=== PATIENT | male | born 1985 | race African-American/Black ===

== ENCOUNTER 2018-08-26 21:40 | Inpatient (IN) | payer BC ==
[~2018-08-26] VITALS: Ht 177.8 cm; Wt 90.3 kg
--- OUTSIDE RECORDS SUMMARY | 2018-08-26 21:43 | XMS REPORT ---
Author Author [facility] Address Unknown Phone Unavailable Care Team Providers Care Sleever Name Role Phone JAGDISH AMADOR Unavailable Unavailable Problems This patient has no known problems. Allergies, Adverse Reactions, Alerts This patient has no known allergies or adverse reactions. Medications This patient has no known medications. Results Test Description Test Time Test Comments Text Results Atomic Results Result Comments CREATINE KINASE (CK) 2018-08-26 13:48:00 CREATINE KINASE TOTAL (BEAKER) (test fzzx=898) > U/L 29-200 CREATINE KINASE (CK)2018-08-26 12:57:00* Test Item Value Reference Range Comments CREATINE KINASE TOTAL (BEAKER) (test xhfy=146) > U/L 29-200 BASIC METABOLIC [id number] 06:17:00* Test Item Value Reference Range Comments SODIUM (BEAKER) (test hthw=730) 136 meq/L 136-145 POTASSIUM (BEAKER) (test motz=648) 5.4 meq/L 3.5-5.1 CHLORIDE (BEAKER) (test pquv=753) 103 meq/L 98-107 CO2 (BEAKER) (test obbj=837) 27 meq/L 22-29 BLOOD UREA NITROGEN (BEAKER) (test jqwx=011) 13 mg/dL 7-21 CREATININE (BEAKER) (test dgmd=753) 0.84 mg/dL 0.57-1.25 GLUCOSE RANDOM (BEAKER) (test ugzh=900) 80 mg/dL 70-105 CALCIUM (BEAKER) (test wjuf=454) 9.4 mg/dL 8.4-10.2 EGFR (BEAKER) (test hzpq=6873) 128 mL/min/1.73 sq m ESTIMATED GFR IS NOT ACCURATE CREATININE CLEARANCE IN PREDICTING GLOMERULAR FILTRATION RATE. ESTIMATED GFR IS NOT APPLICABLE FOR DIALYSIS PATIENTS. CBC W/PLT COUNT & AUTO [id number] 05:49:00* Test Item Value Reference Range Comments WHITE BLOOD CELL COUNT (BEAKER) (test uelk=421) 7.3 K/ L 3.5-10.5 RED BLOOD CELL COUNT (BEAKER) (test wkqv=444) 5.32 M/ L 4.63-6.08 HEMOGLOBIN (BEAKER) (test hjjc=122) 15.7 GM/DL 13.7-17.5 HEMATOCRIT (BEAKER) (test ceqb=541) 46.5 % 40.1-51.0 MEAN CORPUSCULAR VOLUME (BEAKER) (test izdj=928) 87.4 fL 79.0-92.2 MEAN CORPUSCULAR HEMOGLOBIN (BEAKER) (test gkau=991) 29.5 pg 25.7-32.2 MEAN CORPUSCULAR HEMOGLOBIN CONC (BEAKER) (test okte=862) 33.8 GM/DL 32.3-36.5 RED CELL DISTRIBUTION WIDTH (BEAKER) (test ageg=392) 12.6 % 11.6-14.4 PLATELET COUNT (BEAKER) (test ssaj=900) 228 K/CU MM 150-450 MEAN PLATELET VOLUME (BEAKER) (test zifw=300) 10.6 fL 9.4-12.4 NUCLEATED RED BLOOD CELLS (BEAKER) (test tqjo=085) 0 /100 WBC 0-0 NEUTROPHILS RELATIVE PERCENT (BEAKER) (test suxc=410) 68 % LYMPHOCYTES RELATIVE PERCENT (BEAKER) (test cuum=393) 19 % MONOCYTES RELATIVE PERCENT (BEAKER) (test zrwa=277) 11 % EOSINOPHILS RELATIVE PERCENT (BEAKER) (test nlio=318) 1 % BASOPHILS RELATIVE PERCENT (BEAKER) (test dyvl=727) 0 % NEUTROPHILS ABSOLUTE COUNT (BEAKER) (test vyik=259) 4.96 K/ L 1.78-5.38 LYMPHOCYTES ABSOLUTE COUNT (BEAKER) (test iawx=251) 1.39 K/ L 1.32-3.57 MONOCYTES ABSOLUTE COUNT (BEAKER) (test dejo=371) 0.76 K/ L 0.30-0.82 EOSINOPHILS ABSOLUTE COUNT (BEAKER) (test urjv=596) 0.09 K/ L 0.04-0.54 BASOPHILS ABSOLUTE COUNT (BEAKER) (test vqck=402) 0.02 K/ L 0.01-0.08 IMMATURE GRANULOCYTES-RELATIVE PERCENT (BEAKER) (test aedv=3771) 1 % 0-1 CREATINE KINASE (CK)2018-08-25 17:00:00* Test Item Value Reference Range Comments CREATINE KINASE TOTAL (BEAKER) (test rrkm=225) U/L 29-200 DR=[id number] U/L BASIC METABOLIC [id number] 06:34:00* Test Item Value Reference Range Comments SODIUM (BEAKER) (test dsuf=184) 137 meq/L 136-145 POTASSIUM (BEAKER) (test tchc=009) 4.8 meq/L 3.5-5.1 CHLORIDE (BEAKER) (test yuea=425) 106 meq/L 98-107 CO2 (BEAKER) (test ocqg=322) 26 meq/L 22-29 BLOOD UREA NITROGEN (BEAKER) (test katd=989) 9 mg/dL 7-21 CREATININE (BEAKER) (test qtwx=104) 0.79 mg/dL 0.57-1.25 GLUCOSE RANDOM (BEAKER) (test qgxb=008) 84 mg/dL 70-105 CALCIUM (BEAKER) (test zmmm=425) 9.0 mg/dL 8.4-10.2 EGFR (BEAKER) (test uiwy=2161) 138 mL/min/1.73 sq m ESTIMATED GFR IS NOT ACCURATE CREATININE CLEARANCE IN PREDICTING GLOMERULAR FILTRATION RATE. ESTIMATED GFR IS NOT APPLICABLE FOR DIALYSIS PATIENTS. CBC W/PLT COUNT & AUTO [id number] 05:42:00* Test Item Value Reference Range Comments WHITE BLOOD CELL COUNT (BEAKER) (test hgjo=976) 7.3 K/ L 3.5-10.5 RED BLOOD CELL COUNT (BEAKER) (test vdgi=744) 4.94 M/ L 4.63-6.08 HEMOGLOBIN (BEAKER) (test wgmu=138) 14.6 GM/DL 13.7-17.5 HEMATOCRIT (BEAKER) (test dmlv=622) 43.4 % 40.1-51.0 MEAN CORPUSCULAR VOLUME (BEAKER) (test yvxa=476) 87.9 fL 79.0-92.2 MEAN CORPUSCULAR HEMOGLOBIN (BEAKER) (test frnt=221) 29.6 pg 25.7-32.2 MEAN CORPUSCULAR HEMOGLOBIN CONC (BEAKER) (test gtxv=607) 33.6 GM/DL 32.3-36.5 RED CELL DISTRIBUTION WIDTH (BEAKER) (test wqli=509) 12.6 % 11.6-14.4 PLATELET COUNT (BEAKER) (test mvfu=092) 189 K/CU MM 150-450 MEAN PLATELET VOLUME (BEAKER) (test cawr=800) 10.8 fL 9.4-12.4 NUCLEATED RED BLOOD CELLS (BEAKER) (test vlnp=142) 0 /100 WBC 0-0 NEUTROPHILS RELATIVE PERCENT (BEAKER) (test lziz=190) 69 % LYMPHOCYTES RELATIVE PERCENT (BEAKER) (test wfoq=315) 19 % MONOCYTES RELATIVE PERCENT (BEAKER) (test jbgc=734) 11 % EOSINOPHILS RELATIVE PERCENT (BEAKER) (test ezad=066) 1 % BASOPHILS RELATIVE PERCENT (BEAKER) (test isti=603) 0 % NEUTROPHILS ABSOLUTE COUNT (BEAKER) (test zwat=635) 5.01 K/ L 1.78-5.38 LYMPHOCYTES ABSOLUTE COUNT (BEAKER) (test ramx=418) 1.34 K/ L 1.32-3.57 MONOCYTES ABSOLUTE COUNT (BEAKER) (test tvlg=385) 0.80 K/ L 0.30-0.82 EOSINOPHILS ABSOLUTE COUNT (BEAKER) (test xaiv=625) 0.05 K/ L 0.04-0.54 BASOPHILS ABSOLUTE COUNT (BEAKER) (test mcwp=316) 0.02 K/ L 0.01-0.08 IMMATURE GRANULOCYTES-RELATIVE PERCENT (BEAKER) (test zzcy=1371) 0 % 0-1 CREATINE KINASE (CK)2018-08-24 08:21:00* Test Item Value Reference Range Comments CREATINE KINASE TOTAL (BEAKER) (test mhbo=640) > U/L 29-200 BASIC METABOLIC [id number] 05:41:00* Test Item Value Reference Range Comments SODIUM (BEAKER) (test jhlc=534) 141 meq/L 136-145 POTASSIUM (BEAKER) (test cbmj=792) 3.9 meq/L 3.5-5.1 CHLORIDE (BEAKER) (test wonx=264) 109 meq/L 98-107 CO2 (BEAKER) (test tsca=417) 26 meq/L 22-29 BLOOD UREA NITROGEN (BEAKER) (test uszd=495) 11 mg/dL 7-21 CREATININE (BEAKER) (test kafs=819) 0.84 mg/dL 0.57-1.25 GLUCOSE RANDOM (BEAKER) (test qnkr=451) 82 mg/dL 70-105 CALCIUM (BEAKER) (test olbw=519) 8.4 mg/dL 8.4-10.2 EGFR (BEAKER) (test gvyg=7630) 128 mL/min/1.73 sq m ESTIMATED GFR IS NOT ACCURATE CREATININE CLEARANCE IN PREDICTING GLOMERULAR FILTRATION RATE. ESTIMATED GFR IS NOT APPLICABLE FOR DIALYSIS PATIENTS. CBC W/PLT COUNT & AUTO [id number] 05:05:00* Test Item Value Reference Range Comments WHITE BLOOD CELL COUNT (BEAKER) (test stac=193) 6.1 K/ L 3.5-10.5 RED BLOOD CELL COUNT (BEAKER) (test uffo=841) 4.75 M/ L 4.63-6.08 HEMOGLOBIN (BEAKER) (test kfxx=427) 14.0 GM/DL 13.7-17.5 HEMATOCRIT (BEAKER) (test agyy=258) 41.0 % 40.1-51.0 MEAN CORPUSCULAR VOLUME (BEAKER) (test llnh=654) 86.3 fL 79.0-92.2 MEAN CORPUSCULAR HEMOGLOBIN (BEAKER) (test zyee=238) 29.5 pg 25.7-32.2 MEAN CORPUSCULAR HEMOGLOBIN CONC (BEAKER) (test jazf=373) 34.1 GM/DL 32.3-36.5 RED CELL DISTRIBUTION WIDTH (BEAKER) (test ffap=682) 12.2 % 11.6-14.4 PLATELET COUNT (BEAKER) (test ysot=685) 175 K/CU MM 150-450 MEAN PLATELET VOLUME (BEAKER) (test fwxl=642) 11.0 fL 9.4-12.4 NUCLEATED RED BLOOD CELLS (BEAKER) (test vgcn=850) 0 /100 WBC 0-0 NEUTROPHILS RELATIVE PERCENT (BEAKER) (test dxso=223) 67 % LYMPHOCYTES RELATIVE PERCENT (BEAKER) (test ficq=916) 20 % MONOCYTES RELATIVE PERCENT (BEAKER) (test bmdj=811) 12 % EOSINOPHILS RELATIVE PERCENT (BEAKER) (test pkcv=530) 1 % BASOPHILS RELATIVE PERCENT (BEAKER) (test tqbl=161) 0 % NEUTROPHILS ABSOLUTE COUNT (BEAKER) (test gvkv=436) 4.09 K/ L 1.78-5.38 LYMPHOCYTES ABSOLUTE COUNT (BEAKER) (test odrn=083) 1.22 K/ L 1.32-3.57 MONOCYTES ABSOLUTE COUNT (BEAKER) (test aamj=019) 0.72 K/ L 0.30-0.82 EOSINOPHILS ABSOLUTE COUNT (BEAKER) (test nkje=004) 0.05 K/ L 0.04-0.54 BASOPHILS ABSOLUTE COUNT (BEAKER) (test bmxr=853) 0.02 K/ L 0.01-0.08 IMMATURE GRANULOCYTES-RELATIVE PERCENT (BEAKER) (test jkgw=2926) 0 % 0-1 RAD, CHEST, 1 VIEW, NON [id number] 17:08:00Reason for exam:->HEMATURIAReason for exam:->SHORTNESS OF BREATHShould this be performed at the bedside?->YesFINAL REPORT Chest, AP view. History: Hematuria. Comparison: 08/20/2012. Discussion: The cardiomediastinal silhouette and pulmonary vas culature are within normal limits. The lungs are clear without evidence of conso lidation or effusion. There are no acute osseous abnormalities. The soft tissue s are unremarkable. IMPRESSION: No acute cardiopulmonary abnormality. Signed: Bryn Elena MDReps[facility] Verified Date/Time: 08/23/2018 17:08:57 Reading Locatio n: [facility] Mammo Reading Room TINE KINASE (CK)2018-08-23 16:46:00* Test Item Value Reference Range Comments CREATINE KINASE TOTAL (BEAKER) (test ayum=958) > U/L 29-200 BASIC METABOLIC [id number] 16:16:00* Test Item Value Reference Range Comments SODIUM (BEAKER) (test vqis=533) 139 meq/L 136-145 POTASSIUM (BEAKER) (test tyfw=951) 3.3 meq/L 3.5-5.1 CHLORIDE (BEAKER) (test iahm=870) 103 meq/L 98-107 CO2 (BEAKER) (test mmmt=818) 27 meq/L 22-29 BLOOD UREA NITROGEN (BEAKER) (test qurr=322) 12 mg/dL 7-21 CREATININE (BEAKER) (test bmbj=007) 0.91 mg/dL 0.57-1.25 GLUCOSE RANDOM (BEAKER) (test wbkg=512) 80 mg/dL 70-105 CALCIUM (BEAKER) (test cqor=167) 9.1 mg/dL 8.4-10.2 EGFR (BEAKER) (test fgma=0342) mL/min/1.73 sq m INSUFFICIENT CLINICAL DATA TO CALCULATE ESTIMATED GFR. URINALYSIS W/ REFLEX URINE [id number] 16:07:00* Test Item Value Reference Range Comments COLOR (BEAKER) (test dfwv=037) Yellow CLARITY (BEAKER) (test diyc=547) Clear SPECIFIC GRAVITY UA (BEAKER) (test wcgl=000) 1.003 1.001-1.035 PH UA (BEAKER) (test fayt=452) 6.5 5.0-8.0 PROTEIN UA (BEAKER) (test oaka=061) 70 mg/dL Negative GLUCOSE UA (BEAKER) (test coqq=411) Negative Negative KETONES UA (BEAKER) (test gbgk=527) Negative Negative BILIRUBIN UA (BEAKER) (test nyht=072) Negative Negative BLOOD UA (BEAKER) (test pksz=723) Large Negative NITRITE UA (BEAKER) (test tbwc=546) Negative Negative LEUKOCYTE ESTERASE UA (BEAKER) (test nxvu=183) Negative Negative UROBILINOGEN UA (BEAKER) (test bnds=142) 0.2 mg/dL 0.2-1.0 RBC UA (BEAKER) (test tcwb=242) 0 /HPF WBC UA (BEAKER) (test zyaj=824) 1 /HPF SOURCE(BEAKER) (test cnjr=6813) CBC W/PLT COUNT & AUTO [id number] 15:58:00* Test Item Value Reference Range Comments WHITE BLOOD CELL COUNT (BEAKER) (test zhrm=698) 6.9 K/ L 3.5-10.5 RED BLOOD CELL COUNT (BEAKER) (test zzcp=111) 5.27 M/ L 4.63-6.08 HEMOGLOBIN (BEAKER) (test wscc=880) 15.4 GM/DL 13.7-17.5 HEMATOCRIT (BEAKER) (test ixdn=022) 45.2 % 40.1-51.0 MEAN CORPUSCULAR VOLUME (BEAKER) (test yodj=382) 85.8 fL 79.0-92.2 MEAN CORPUSCULAR HEMOGLOBIN (BEAKER) (test pbqy=575) 29.2 pg 25.7-32.2 MEAN CORPUSCULAR HEMOGLOBIN CONC (BEAKER) (test hmhy=297) 34.1 GM/DL 32.3-36.5 RED CELL DISTRIBUTION WIDTH (BEAKER) (test gcdl=298) 11.9 % 11.6-14.4 PLATELET COUNT (BEAKER) (test lnhz=904) 173 K/CU MM 150-450 MEAN PLATELET VOLUME (BEAKER) (test nvlk=654) 10.9 fL 9.4-12.4 NUCLEATED RED BLOOD CELLS (BEAKER) (test geyl=416) 0 /100 WBC 0-0 NEUTROPHILS RELATIVE PERCENT (BEAKER) (test exkh=420) 74 % LYMPHOCYTES RELATIVE PERCENT (BEAKER) (test nboo=370) 17 % MONOCYTES RELATIVE PERCENT (BEAKER) (test cnlj=234) 8 % EOSINOPHILS RELATIVE PERCENT (BEAKER) (test njzf=226) 1 % BASOPHILS RELATIVE PERCENT (BEAKER) (test sdso=738) 0 % NEUTROPHILS ABSOLUTE COUNT (BEAKER) (test nkku=930) 5.12 K/ L 1.78-5.38 LYMPHOCYTES ABSOLUTE COUNT (BEAKER) (test ezjq=164) 1.17 K/ L 1.32-3.57 MONOCYTES ABSOLUTE COUNT (BEAKER) (test cefr=904) 0.54 K/ L 0.30-0.82 EOSINOPHILS ABSOLUTE COUNT (BEAKER) (test xicw=687) 0.05 K/ L 0.04-0.54 BASOPHILS ABSOLUTE COUNT (BEAKER) (test bmhb=273) 0.02 K/ L 0.01-0.08 IMMATURE GRANULOCYTES-RELATIVE PERCENT (BEAKER) (test bwcb=0087) 0 % 0-1
--- OUTSIDE RECORDS SUMMARY | 2018-08-26 21:43 | XMS REPORT | Clinical Summary ---
Author Author [facility] Address Unknown Phone Unavailable Care Team Providers Care Lather Apprentice Name Role Phone PCP Unavailable Allergies Comments Active Allergy Reactions Severity Noted Date Hydrocodone-Acetaminophen 08/23/2018 Medications End Date Status Medication Sig Dispensed Refills Start Date Active sodium chloride 0.9%, NS, Inject 5 mLs 5 mL 0 injection intravenously 9 every 8 (eight) hours. Active sodium chloride 0.9%, NS, Inject 5 mLs 5 mL 0 injection intravenously 9 as needed. Active heparin injection 5,000 Inject 1 mL 1 mL 0 units/mL for DVT (5,000 Units 9 prophylaxis/dialysis total) lock/IV bolus subcutaneousl y every 12 (twelve) hours. 08/21/2019 Active acetaminophen (TYLENOL) Take 2 30 tablet 0 325 MG tablet tablets (650 9 mg total) by mouth every 4 (four) hours as needed for up to 360 days. 09/02/2018 Active ondansetron (ZOFRAN-ODT) Take 1 tablet 20 tablet 0 4 MG disintegrating (4 mg total) 9 tablet by mouth every 8 (eight) hours as needed for up to 7 days. 08/26/2019 Active senna (SENOKOT) 8.6 mg Take 1 tablet 30 tablet 0 tablet (8.6 mg 9 total) by mouth every night as needed for Constipation. 09/05/2018 Active bisacodyl (DULCOLAX) 10 Place 1 12 0 mg suppository suppository suppository 9 (10 mg total) rectally daily as needed for up to 10 days. 09/05/2018 Active docusate sodium (COLACE) Take 1 10 capsule 0 100 MG capsule capsule (100 9 mg total) by mouth 2 (two) times daily for 10 days. 08/29/2018 Active polyethylene glycol Take 17 g by 14 each 0 (GLYCOLAX) 17 gram packet mouth daily 9 as needed (Constipation ) for up to 3 days. 09/25/2018 Active temazepam (RESTORIL) 7.5 Take 1 30 capsule 0 MG capsule capsule (7.5 9 mg total) by mouth every night as needed for up to 30 days. Max Daily Amount: 7.5 mg 09/05/2018 Active aluminum & magnesium Take 30 mLs 355 mL 0 hydroxide-simethicone by mouth 9 (MAALOX PLUS) 400-400-40 every 6 (six) mg/5 mL suspension hours as needed for up to 10 days. Active Problems Problem Noted Date Rhabdomyolysis 08/24/2018 Rhabdomyolysis 08/24/2018 Myoglobinuria 08/24/2018 Acute renal failure with acute cortical necrosis 08/24/2018 SOB (shortness of breath) 08/23/2018 Encounters Care Team Description Date Type Specialty 08/24/2018 Travel Nick Jack MD Ahmed, Shamoon, MD SOB (shortness of breath) (Primary Dx); Non-traumatic rhabdomyolysis; Hematuria, gross; Febrile illness 08/23/2018 Hospital Oncology - Encounter 08/26/2018 08/23/2018 Orders Only General Internal Medicine 08/23/2018 Travel after 08/25/2017 Social History Date Tobacco Use Types Packs/Day Years Used Never Smoker Smokeless Tobacco: Never Used Alcohol Use Drinks/Week oz/Week Comments No Alcohol Habits Answer Date Recorded How often do you have a drink containing alcohol? Never 08/23/2018 How many drinks containing alcohol do you have on Not asked a typical day when you are drinking? How often do you have six or more drinks on one Not asked occasion? Sex Assigned at Date Recorded Not on file Industry Job Start Date Occupation Not on file Not on file Not on file Travel End Travel History Travel Start No recent travel history available. Last Filed Vital Signs Time Taken Vital Sign Reading 08/26/2018 3:00 PM CDT Blood Pressure 136/76 08/26/2018 3:00 PM CDT Pulse 111 08/26/2018 3:00 PM CDT Temperature 36.1 C (97 F) 08/26/2018 3:00 PM CDT Respiratory Rate 18 08/26/2018 3:00 PM CDT Oxygen Saturation 96% - Inhaled Oxygen - Concentration 08/23/2018 11:10 PM CDT Weight 93.4 kg (206 lb) 08/23/2018 11:10 PM CDT Height 177.8 cm (5' 10") 08/23/2018 11:10 PM CDT Body Mass Index 29.56 Plan of Treatment Not on file Procedures Comments Procedure Name Priority Date/Time Associated Diagnosis CREATINE KINASE (CK) Routine 08/26/2018 11:56 AM CDT CBC W/PLT COUNT & AUTO Routine 08/26/2018 DIFFERENTIAL 5:18 AM CDT CREATINE KINASE (CK) Routine 08/26/2018 5:18 AM CDT CBC W/PLT COUNT & AUTO Routine 08/26/2018 DIFFERENTIAL 5:18 AM CDT BASIC METABOLIC PANEL (7) Routine 08/26/2018 5:18 AM CDT CREATINE KINASE (CK) STAT 08/25/2018 3:03 PM CDT CBC W/PLT COUNT & AUTO Routine 08/25/2018 DIFFERENTIAL 5:25 AM CDT CBC W/PLT COUNT & AUTO Routine 08/25/2018 DIFFERENTIAL 5:25 AM CDT BASIC METABOLIC PANEL (7) Routine 08/25/2018 5:25 AM CDT CBC W/PLT COUNT & AUTO Routine 08/24/2018 DIFFERENTIAL 4:34 AM CDT CREATINE KINASE (CK) Routine 08/24/2018 4:34 AM CDT CBC W/PLT COUNT & AUTO Routine 08/24/2018 DIFFERENTIAL 4:34 AM CDT BASIC METABOLIC PANEL (7) Routine 08/24/2018 4:34 AM CDT XR CHEST 1 VIEW STAT 08/23/2018 PORTABLE/BEDSIDE 5:00 PM CDT URINALYSIS W/ REFLEX STAT 08/23/2018 URINE CULTURE 3:43 PM CDT CBC W/PLT COUNT & AUTO STAT 08/23/2018 DIFFERENTIAL 3:39 PM CDT CREATINE KINASE (CK) STAT 08/23/2018 3:39 PM CDT BASIC METABOLIC PANEL (7) STAT 08/23/2018 3:39 PM CDT CBC W/PLT COUNT & AUTO STAT 08/23/2018 DIFFERENTIAL 3:39 PM CDT ECG 12-LEAD Routine 08/23/2018 3:31 PM CDT Procedure Note - Interface, External Ris In - 08/23/2018 6:33 PM CDT Ventricula r Rate 79 BPM Atrial Rate 79 BPM P-R Interval 156 ms QRS Duration 88 ms Q-T Interval 348 ms QTC Calculatio n(Bazett) 399 ms P Nowata 63 degrees R Nowata 23 degrees T Nowata 26 degrees Sinus rhythm with sinus arrhythmia with occasional Premature ventricula r complexes Otherwise normal ECG When compared with ECG of 3 14:16, Premature ventricula r complexes are now Present T wave amplitude has decreased in Anterior leads ECG 12-LEAD STAT 08/23/2018 3:31 PM CDT after 08/25/2017 Results * Creatine Kinase (CK) (08/26/2018 11:56 AM CDT) Only the most recent of 5 results within the time period is included. Total CK >03580 (H) 29 - 200 U/L [facility] Specimen Blood - Arm, Right Performing Organization Address City/State/Zipcode Phone Number [facility] [address] [place] [address] [facility] * CBC with platelet count + automated diff (08/26/2018 5:18 AM CDT) Only the most recent of 4 results within the time period is included. WBC 7.3 3.5 - 10.5 K/L [facility] RBC 5.32 4.63 - 6.08 M/L [facility] Hemoglobin 15.7 13.7 - 17.5 GM/DL [facility] Hematocrit 46.5 40.1 - 51.0 % [facility] MCV 87.4 79.0 - 92.2 fL [facility] MCH 29.5 25.7 - 32.2 pg [facility] MCHC 33.8 32.3 - 36.5 GM/DL [facility] RDW 12.6 11.6 - 14.4 % [facility] Platelets 228 150 - 450 K/CU MM [facility] MPV 10.6 9.4 - 12.4 fL [facility] nRBC 0 0 - 0 /100 WBC [facility] % Neutros 68 % [facility] % Lymphs 19 % [facility] % Monos 11 % [facility] % Eos 1 % [facility] % Baso 0 % [facility] # Neutros 4.96 1.78 - 5.38 K/L [facility] # Lymphs 1.39 1.32 - 3.57 K/L [facility] # Monos 0.76 0.30 - 0.82 K/L [facility] # Eos 0.09 0.04 - 0.54 K/L [facility] # Baso 0.02 0.01 - 0.08 K/L [facility] Immature 1 0 - 1 % [facility] Granulocytes-Relative [facility] Specimen Blood - Arm, Left Performing Organization Address City/State/Zipcode Phone Number [facility] [address] [place] [address] [facility] * Basic metabolic panel (08/26/2018 5:18 AM CDT) Only the most recent of 4 results within the time period is included. Sodium 136 136 - 145 meq/L [facility] Potassium 5.4 (H) 3.5 - 5.1 meq/L [facility] Chloride 103 98 - 107 meq/L [facility] CO2 27 22 - 29 meq/L [facility] BUN 13 7 - 21 mg/dL [facility] Creatinine 0.84 0.57 - 1.25 mg/dL [facility] Glucose 80 70 - 105 mg/dL [facility] Calcium 9.4 8.4 - 10.2 mg/dL [facility] EGFR 128Comment: ESTIMATED GFR IS mL/min/1.73 sq m [facility] NOT ACCURATE CREATININE [facility] CLEARANCE IN PREDICTING GLOMERULAR FILTRATION RATE. ESTIMATED GFR IS NOT APPLICABLE FOR DIALYSIS PATIENTS. Specimen Blood - Arm, Left Performing Organization Address City/State/Zipcode Phone Number [facility] [address] [place], [place] [id number] [facility] * XR chest 1 view portable / bedside (08/23/2018 5:00 PM CDT) Narrative Performed At FINAL REPORT [facility] Chest, AP view. History: Hematuria. Comparison: 08/20/2012. Discussion:The cardiomediastinal silhouette and pulmonary vasculature are within normal limits. The lungs are clear without evidence of consolidation or effusion.There are no acute osseous abnormalities. The soft tissues are unremarkable. IMPRESSION: No acute cardiopulmonary abnormality. Signed: Andrew Kline MD Report Verified Date/Time:08/23/2018 17:08:57 Reading Location: [facility] Reading Room Procedure Note Interface, External Ris In - 08/23/2018 5:11 PM CDT FINAL REPORT Chest, AP view. History: Hematuria. Comparison: 08/20/2012. Discussion: The cardiomediastinal silhouette and pulmonary vasculature are within normal limits. The lungs are clear without evidence of consolidation or effusion. There are no acute osseous abnormalities. The soft tissues are unremarkable. IMPRESSION: No acute cardiopulmonary abnormality. Signed: Andrew Kline MD Report Verified Date/Time: 08/23/2018 17:08:57 Reading Location: [facility] Mammo Reading Room Performing Organization Address City/[facility]/Zipcode Phone Number [facility] * Urinalysis w/Microscopic + Reflex to Culture (08/23/2018 3:43 PM CDT) Color, UA Yellow [facility] Clarity, UA Clear [facility] Specific [place], UA 1.003 1.001 - 1.035 [facility] pH, UA 6.5 5.0 - 8.0 [facility] Protein, UA 70 mg/dL (A) Negative [facility] Glucose, UA Negative Negative [facility] Ketones, UA Negative Negative [facility] Bilirubin, UA Negative Negative [facility] Blood, UA Large (A) Negative [facility] Nitrite, UA Negative Negative [facility] Leukocytes, UA Negative Negative [facility] Urobilinogen, UA 0.2 0.2 - 1.0 mg/dL [facility] RBC, UA 0 /HPF [facility] WBC, UA 1 /HPF [facility] Specimen Source [facility] Specimen Urine - Urine, Voided Performing Organization Address City/[facility]/Zipcode Phone Number [facility] [address] [place] [address] [facility] * ECG 12 lead (08/23/2018 3:31 PM CDT) Narrative Performed At Ventricular Rate 79 BPM [facility] Atrial Rate 79 BPM P-R Interval 156 ms QRS Duration 88 ms Q-T Interval 348 ms QTC Calculation(Bazett) 399 ms P Nowata 63 degrees R Nowata 23 degrees T Nowata 26 degrees Sinus rhythm with sinus arrhythmia with occasional Premature ventricular complexes Otherwise normal ECG When compared with ECG of 17-AUG-2012 14:16, Premature ventricular complexes are now Present ST elevation no longer seen T wave amplitude has decreased in Anterior leads Confirmed by MD MONTE YOCHAI ([id number]) on 08/24/2018 8:05:56 AM Procedure Note Interface, External Ris In - 08/24/2018 8:06 AM CDT Ventricular Rate 79 BPM Atrial Rate 79 BPM P-R Interval 156 ms QRS Duration 88 ms Q-T Interval 348 ms QTC Calculation(Bazett) 399 ms P Nowata 63 degrees R Nowata 23 degrees T Nowata 26 degrees Sinus rhythm with sinus arrhythmia with occasional Premature ventricular complexes Otherwise normal ECG When compared with ECG of 17-AUG-2012 14:16, Premature ventricular complexes are now Present ST elevation no longer seen T wave amplitude has decreased in Anterior leads Confirmed by MD MONTE YOCHAI ([id number]) on 08/24/2018 8:05:56 AM Performing Organization Address City/State/Zipcode Phone Number NEISHA SMITH after 08/25/2017 Insurance Payer Benefit Subscriber ID Type Phone Address Plan / Group [employer]UE [employer] BCBS PPO xxxxxxxxxxxx PPO [phone] [address] [place] [address] CHOICE Advance Directives For more information, please contact: [facility] [address] [place], [place] [phone] Date Inactivated Comments Code Status Date Activated Full Code 08/23/2018 6:47 PM This code status was determined by: Patient
[2018-08-26 21:54] VITALS: BP 140/81
--- NOTE | 2018-08-26 22:00 | NUR ---
received pt via ems as a transfer from [facility], AAOx4, resp even and unlabored, c/o pain of 6/10 to lower back radiating to thighs, pain med on board, skin intact, 20g IV started to left forearm with good blood return, ambulates by self with steady gait, family at the bedside, bed in lowest and locked position, call light in reach
[2018-08-26 22:22] VITALS: BP 140/81
[2018-08-26] MEDS ORDERED: ZOLPIDEM TARTRATE 5 MG TAB PO PRN (22:45)
[2018-08-26] MEDS ORDERED: ACETAMINOPHEN 325 MG TAB PO PRN (22:45)
[2018-08-26] MEDS: DEXTROSE 5%/0.9% SOD CHL 1,000 ML IV SCH (23:30)
--- NOTE | 2018-08-26 23:42 | NUR ---
ekg and cxr not performed per patient request tonight, will pass onto oncoming nurse
[2018-08-27 04:00] VITALS: BP 118/63
[2018-08-27 06:52] LABS: BASOPHILS % 0.4 % (0.0-1.0); EOSINOPHILS # (AUTO) 0.1 (0.0-0.4); HEMATOCRIT 47.2 % (38.2-49.6); HEMOGLOBIN 16.1 g/dL (14.0-18.0); LYMPHOCYTES # (AUTO) 1.5 (1.0-3.2); LYMPHOCYTES % 18.6 % (18.0-39.1); MEAN CORPUSCULAR HEMOGLOBIN 29.3 pg (28-32); MEAN CORPUSCULAR HGB CONC 34.1 g/dL (31-35); MONOCYTES # (AUTO) 0.9 (0.2-0.8); MONOCYTES % 10.9 % (4.4-11.3); NEUTROPHILS # (AUTO) 5.6 (2.1-6.9); NEUTROPHILS % 67.9 % (38.7-80.0); PLATELET COUNT 265 x10e3/uL (140-360); RED BLOOD COUNT 5.49 x10e6/uL (4.3-5.7); RED CELL DISTRIBUTION WIDTH 12.6 % (11.7-14.4)
[2018-08-27 07:11] LABS: ANION GAP 12.1 mmol/L (8-16); BLOOD UREA NITROGEN 15 mg/dL (7-26); CARBON DIOXIDE 26 mmol/L (22-29); CHLORIDE 103 mmol/L (98-107); CREATININE, SERUM 0.87 mg/dL (0.72-1.25); POTASSIUM 5.1 mmol/L (3.5-5.1); SODIUM 136 mmol/L (136-145)
[2018-08-27 07:12] LABS: ALANINE AMINOTRANSFERASE 464 IU/L (0-55); ALBUMIN 2.9 g/dL (3.5-5.0); ALBUMIN/GLOBULIN RATIO 0.7 (0.8-2.0); ALKALINE PHOSPHATASE 47 IU/L (40-150); BUN/CREATININE RATIO 17 (6-25); CALCIUM 9.2 mg/dL (8.4-10.2); EST GLOMERULAR FILTRATION RATE > 60 ML/MIN (60-); GLUCOSE 93 mg/dL (74-118)
--- NOTE | 2018-08-27 07:30 | NUR ---
RECD PT IN BED SLEEPING NO DISTRESS NTOED,,NO S/S DISCOMFORT
[2018-08-27 07:35] VITALS: BP 133/77
[2018-08-27] MEDS: DEXTROSE 5%/0.9% SOD CHL 1,000 ML IV SCH (07:51)
[2018-08-27 07:52] VITALS: BP 133/77
[2018-08-27 11:50] VITALS: BP 150/94
[2018-08-27 14:25] LABS: CREATINE KINASE > 4267 IU/L (30-200)
[2018-08-27 15:34] VITALS: BP 119/66
[2018-08-27] MEDS ORDERED: ASPIRIN 81 MG CHEW TAB PO ONE (15:45)
[2018-08-27] MEDS ORDERED: SODIUM CHLORIDE 0.9% 1000ML 1,000 ML IV SCH (16:45)
[2018-08-27] MEDS ORDERED: ACETAMINOPHEN 325 MG TAB PO PRN (17:00)
[2018-08-27 17:25] LABS: PHOSPHORUS 4.6 MG/DL (2.3-4.7)
[2018-08-27 17:31] LABS: CLARITY,URINE HAZY (CLEAR); COLOR,URINE YELLOW (YELLOW); LEUKOCYTE ESTERASE ,URINE NEGATIVE (NEGATIVE); NITRITE,URINE NEGATIVE (NEGATIVE); PROTEIN,URINE DIPSTICK 3+ (NEGATIVE)
[2018-08-27 17:32] LABS: BILIRUBIN,URINE NEGATIVE (NEGATIVE); KETONES,URINE NEGATIVE (NEGATIVE); URINE UROBILINOGEN 0.2 mg/dL (0.2 - 1)
[2018-08-27 17:33] LABS: AMPHETAMINES SCREEN,URINE NEGATIVE (NEGATIVE); BENZODIAZEPINES SCREEN,URINE NEGATIVE (NEGATIVE); PHENCYCLIDINE SCREEN,URINE NEGATIVE (NEGATIVE)
--- NOTE | 2018-08-27 17:39 | NUR ---
PT UP AMBULATING IN [place] ,NO DISTRESS NTOED,DENIES PAIN
[2018-08-27 17:41] LABS: BACTERIA,URINE FEW /HPF; EPITHELIAL CELLS,URINE FEW /LPF
--- NOTE | 2018-08-27 19:10 | NUR ---
BS rounds completed with morning nurse. Pt alert to name. Lying supine in bed, low and locked. Denies pain at this time. No acute distress noted. Call albert within reach.
--- NOTE | 2018-08-27 19:39 | Diagnostic Imaging Report ---
HISTORY: Abnormal LFTs, rhabdomyolysis TECHNIQUE: Selected static images from complete abdominal ultrasound provided for INTERPRETATION: COMPARISON: None. FINDINGS: Pancreas: Visualized portions are normal without mass or ductal dilatation. Liver: Measures 13.5 cm in sagittal plane. The echotexture is normal. Solid hyperechoic lesion in the right lobe measures 1.6 x 1.5 x 1.5 cm. Portal Vein: Measures 0.9 cm. Hepatopetal flow on spectral Doppler interrogation. Biliary Tree: Normal Gallbladder: No evidence of gallstone or gallbladder wall thickening. CBD: 0.2 cm. Right Kidney: Length is 11.7 cm. Echotexture is mildly increased. No mass or hydronephrosis. Left Kidney: Length is 10.4 cm. Echotexture is mildly increased. No mass or hydronephrosis. Spleen: 10.0 cm in length. No evidence for mass. Proximal Aorta: 1.7 cm. Mid Aorta: 1.3 cm. Distal Aorta: Poorly visualized due to bowel gas. IVC: Patent No free fluid The bladder is underdistended. Ureteral jets are visible. Prostate gland measures 4.2 x 3.8 x 4.1 cm. IMPRESSION: 1. Hyperechoic mass in the right lobe of the liver. Recommend further characterization with CT dedicated to the liver. 2. Normal gallbladder and biliary tree. 3. Mildly increased renal echotexture suggestive of medical renal disease. No hydronephrosis. Under distended but otherwise normal bladder. Signed by: Dr. Waldemar Ferguson MD on 08/27/2018 7:36 PM
[2018-08-27 20:58] VITALS: BP 149/81
[2018-08-27] MEDS: SODIUM BICARBONATE 8.4% SYRING 150 ML in DEXTROSE 5% 1,000 ML IV SCH (21:50)
[2018-08-28] VITALS (8 sets, daily range): BP systolic 98–122; BP diastolic 54–77
[2018-08-28] MEDS ORDERED: SENNA-S TABLET PO ONE (00:15)
--- NOTE | 2018-08-28 00:59 | Consultation ---
DATE OF CONSULTATION: 08/27/2018 HISTORY OF PRESENT ILLNESS: [facility] 33[facility] with a CK count of more than 320,000. The patient recently had an onset of flu, was diagnosed in the ED, had a flu test done, was prescribed Tamiflu, developed body ache and cranberry colored urine, was sent here. Blood test was done, found to have 320,000 CPK. Now here, CPK is reported as more than 4270. I have spoken to Lab, they are running it, so we will get the accurate number shortly. The patient is awake, alert, relatively asymptomatic. Did feel weak and sore over his body, but is better now. He is accompanied by his . About a year and half ago, he had similar flu-like symptoms and was diagnosed to have rhabdomyolysis. He denies any history of hypertension or diabetes. He smokes occasionally. He drinks occasionally. Denies taking anything [id number]. FAMILY HISTORY: Significant for hypertension. ALLERGIES: HE IS ALLERGIC TO HYDROCODONE. SOCIAL HISTORY: As above. FAMILY HISTORY: As above. REVIEW OF SYSTEMS: He did have an episode of diarrhea, which is better now. Denies any abdominal pain, chest pain, or all muscle ache at this point in time. Denies any arthralgia or arthritis. Denies any history of connective tissue disorder, any exposure to hepatitis. PHYSICAL EXAMINATION: GENERAL: Awake, alert, lying supine, in no apparent distress. VITAL SIGNS: Blood pressure 119/66, pulse rate 93, afebrile, oxygen saturation 98% on room air. HEAD AND NECK: Cornea clear. Mucosa membranes are moist. LUNGS: Relatively clear. HEART: S1, S2 audible. ABDOMEN: Soft, nontender. EXTREMITIES: Lower extremity, no edema. IMPRESSION: Rhabdomyolysis. Serum creatinine 0.87, potassium 5.1. Hemoglobin 16.1. LFTs, AST 1750, total bilirubin 0.5, alkaline phosphatase 43, ALT is 464. Etiology of rhabdomyolysis is unclear, could be viral, could be drug related. Discussed with the patient and his in great detail. All questions answered. Elevated LFTs noted. Hemoconcentration likely secondary dehydration. The patient denies using any testosterone. PLAN: Plan on discontinue existing IV fluid and I will give him a liter of normal saline bolus. Thereafter, we will start IV bicarbonate. We will obtain urinalysis, urine drug screen, hepatitis B, hepatitis C, HIV, uric acid, phosphorus level. Workup ordered. Discussed with the patient. MD PRASHANT Shelby/STEVE /[id number]
--- NOTE | 2018-08-28 01:05 | History and Physical ---
HISTORY OF PRESENT ILLNESS: The patient is a 33-year-old male with past medical history negative for any significant medical condition except that he had rhabdomyolysis 5 years ago. The patient came to the hospital to [facility] complaining of muscle pain. He was diagnosed with rhabdomyolysis and now the patient was transferred here to [facility] because of the family request. REVIEW OF SYSTEMS: CARDIOVASCULAR: No chest pain or palpitation. RESPIRATORY: No shortness of breath. No cough. GASTROINTESTINAL: No nausea. No vomiting. No diarrhea. GENITOURINARY: No frequency or dysuria. ALLERGIES: HE IS ALLERGIC TO HYDROCODONE. SOCIAL HISTORY: He drinks occasionally. He does not smoke. PAST MEDICAL HISTORY: Negative for any significant condition except for rhabdomyolysis 5 years ago. PHYSICAL EXAMINATION: VITAL SIGNS: Blood pressure 119/66, temperature 37.1, heart rate 93 per minute, respiratory rate is 18 per minute, and oxygen saturation is 98%. HEART: Showed regular rhythm. No murmur or added sound. LUNGS: Clear bilaterally. ABDOMEN: Soft, nontender. No distention. No visceromegaly. EXTREMITIES: Show no evidence of cyanosis or hematoma. LABORATORY DATA: BMP; sodium 136, potassium 5.1, chloride 103, CO2 26, BUN 15, creatinine 0.87, glucose 93. CBC; white blood count 8.18, hemoglobin 16.1, hematocrit 47.2, platelet count 265,000. AST is very elevated at 1750, ALT 464, total bilirubin is 0.5, alkaline phosphatase 47. FINAL IMPRESSION: 1. Rhabdomyolysis. 2. Elevated liver function tests secondary to acute hepatitis. PLAN OF TREATMENT: We are going to continue D5 normal saline at 125 mL an hour, Ambien 5 mg at night p.r.n. for sleep and we are going to decrease Tylenol to 325 mg q.4 hours as needed for pain or fever. Consult Dr. Pate for Nephrology. We are going to consult Dr. Escobedo for Cardiology due to elevated CK-MB, although the EKG is normal. We are going to get Dr. Christiano Zamarripa of Gastroenterology for elevated LFTs. Dr. Ar Zamarripa will be covering for me this weekend. We are going to continue monitor the total CPK on daily basis, troponin also to see if it is more cardiac specific. We are going to order a liver ultrasound, hepatitis profile, antinuclear antibody, antimitochondrial antibody, iron, and ferritin, laboratory workup for elevated LFTs. We are going to continue to monitor liver function tests with a CMP also. The case has been discussed with the family . MD SAVI Melo/STEVE /[id number]
[2018-08-28] MEDS: SODIUM BICARBONATE 8.4% SYRING 150 ML in DEXTROSE 5% 1,000 ML IV SCH ×4 (06:48→22:00)
[2018-08-28 07:08] LABS: BASOPHILS % 0.6 % (0.0-1.0); EOSINOPHILS # (AUTO) 0.1 (0.0-0.4); EOSINOPHILS % 1.3 % (0.0-6.0); HEMATOCRIT 45.8 % (38.2-49.6); HEMOGLOBIN 15.1 g/dL (14.0-18.0); LYMPHOCYTES # (AUTO) 1.3 (1.0-3.2); LYMPHOCYTES % 17.9 % (18.0-39.1); MEAN CORPUSCULAR VOLUME 88.1 fL (81-99); MONOCYTES # (AUTO) 0.8 (0.2-0.8); MONOCYTES % 11.6 % (4.4-11.3); NEUTROPHILS # (AUTO) 4.9 (2.1-6.9); NEUTROPHILS % 67.5 % (38.7-80.0); PLATELET COUNT 174 x10e3/uL (140-360); RED CELL DISTRIBUTION WIDTH 12.5 % (11.7-14.4)
[2018-08-28 07:28] LABS: CREATINE KINASE MB 10.6 ng/mL (0-5.0)
--- NOTE | 2018-08-28 07:30 | NUR ---
PT IN BED SLEEPING ,NO S/S DISCOMFPRT
[2018-08-28 07:50] LABS: HIV 1&2 AB SCREEN NON-REACTIVE (NONREACTIVE)
[2018-08-28 07:59] LABS: ALANINE AMINOTRANSFERASE 473 IU/L (0-55); ALBUMIN 2.7 g/dL (3.5-5.0); ALBUMIN/GLOBULIN RATIO 0.7 (0.8-2.0); ALKALINE PHOSPHATASE 46 IU/L (40-150); ANION GAP 11.7 mmol/L (8-16); BLOOD UREA NITROGEN 19 mg/dL (7-26); BUN/CREATININE RATIO 22 (6-25); CALCIUM 9.2 mg/dL (8.4-10.2); CARBON DIOXIDE 28 mmol/L (22-29); CHLORIDE 101 mmol/L (98-107); CREATININE, SERUM 0.85 mg/dL (0.72-1.25); EST GLOMERULAR FILTRATION RATE > 60 ML/MIN (60-); GLUCOSE 82 mg/dL (74-118); POTASSIUM 4.7 mmol/L (3.5-5.1); SODIUM 136 mmol/L (136-145)
[2018-08-28 08:09] LABS: % IRON SATURATION 40 % (15-50); IRON 86 ug/dL (65-175); TOTAL IRON BINDING CAPACITY 217 ug/dL (261-478); TRANSFERRIN 155 mg/dL (174-364)
[2018-08-28] MEDS: SENNA-S TABLET PO SCH ×2 (09:00→17:02)
[2018-08-28 10:04] LABS: CREATINE KINASE 262400 IU/L (30-200)
--- NOTE | 2018-08-28 17:51 | NUR ---
PT UP IN BED NO DISTRESS NOTED,DENIES PAIN
--- NOTE | 2018-08-28 18:12 | Consultation ---
DATE OF CONSULTATION: Cardiology Consultation HISTORY OF PRESENT ILLNESS: This is a 33-year-old male, who developed influenza and viral illness approximately 2 weeks ago, underwent a treatment with Tamiflu, who [facility] with severe generalized weakness, fatigue, malaise, and muscle pain. The patient was found to have severe rhabdomyolysis, but was transferred here due to patient's request. He currently is feeling better. He has received intravenous fluids. His laboratory values are coming down. He denies any chest pain or shortness of breath. REVIEW OF SYSTEMS: A 12-point review of system was conducted, is negative, otherwise, as stated above in the HPI. PAST MEDICAL HISTORY: History of rhabdomyolysis. PAST SURGICAL HISTORY: None recent. FAMILY HISTORY: No premature coronary artery disease or sudden cardiac . No heart failure. ALLERGIES: HYDROCODONE. MEDICATIONS: See medication reconciliation form. PHYSICAL EXAMINATION: VITAL SIGNS: Temperature is 96.2, heart rate is 88, respirations 16, blood pressure is 108/61, and oxygen saturation 97% on room air. GENERAL: He is well-appearing, well-built male, lying comfortably in bed. CARDIOVASCULAR: Regular rate and rhythm. LUNGS: Clear to auscultation. ABDOMEN: Soft, nontender. EXTREMITIES: No edema. NEUROLOGIC: No focal deficits noted. LABORATORY DATA: Reviewed. CK trending down, currently at 191,000, on admission was greater than 342,000. IMPRESSION: 1. Rhabdomyolysis. 2. Elevated liver function tests. 3. Elevated CK-MB. RECOMMENDATIONS: The patient has no cardiovascular risk factors and his troponins have been within normal limits. His elevated CK-MB is likely related to his rhabdomyolysis. We will check a 2D echocardiogram to ensure normal left ventricular function given his two prior episodes of rhabdomyolysis due to viral illnesses. These have been known to cause cardiomyopathies. His 12-lead electrocardiogram showed normal sinus rhythm with no ST or T- wave abnormalities. Continue treatment and evaluation for his rhabdo per primary Nephrology teams. Jorge Escobedo DO BM/MODL /[id number]
--- NOTE | 2018-08-28 18:19 | NUR ---
24 HOUR URINE SENT TO LAB
--- NOTE | 2018-08-28 19:15 | NUR ---
Completed nursing report with morning nurse. Pt alert to name. Sitting up on side of bed. Family at bedside. Denies pain at this time. Call albert within reach. Will continue to monitor.
[2018-08-29] VITALS (7 sets, daily range): BP systolic 101–131; BP diastolic 55–64
--- NOTE | 2018-08-29 01:15 | NUR ---
ROUNDS WITH DR. Luisa LEDESMA. ORDERED CT ABDOMEN WITH LIVER MASS PROTOCOL AND VITAMIN B-12 INJECTION DAILY.
[2018-08-29] MEDS ORDERED: SODIUM CHLORIDE 0.9% 100 ML 100 ML ONE (06:02)
[2018-08-29] MEDS ORDERED: IOPAMIDOL 370 MG/ML 200 ML INFUS..BTL INJ ONE (06:02)
--- NOTE | 2018-08-29 06:30 | NUR ---
NEW 20G IV LEFT FA, X1 ATTEMPT, PT TOLERATED WELL.
--- NOTE | 2018-08-29 07:15 | NUR ---
PT RETURNED TO ROOM DENIES PAIN
--- NOTE | 2018-08-29 07:30 | NUR ---
PT IN XAY
[2018-08-29] MEDS: SODIUM BICARBONATE 8.4% SYRING 150 ML in DEXTROSE 5% 1,000 ML IV SCH ×3 (07:35→23:50)
[2018-08-29 07:53] LABS: BASOPHILS % 0.3 % (0.0-1.0); EOSINOPHILS # (AUTO) 0.1 (0.0-0.4); EOSINOPHILS % 1.9 % (0.0-6.0); HEMATOCRIT 42.6 % (38.2-49.6); HEMOGLOBIN 14.3 g/dL (14.0-18.0); LYMPHOCYTES # (AUTO) 1.4 (1.0-3.2); LYMPHOCYTES % 23.8 % (18.0-39.1); MEAN CORPUSCULAR HEMOGLOBIN 29.5 pg (28-32); MEAN CORPUSCULAR HGB CONC 33.6 g/dL (31-35); MEAN CORPUSCULAR VOLUME 87.8 fL (81-99); MONOCYTES # (AUTO) 0.8 (0.2-0.8); MONOCYTES % 12.8 % (4.4-11.3); NEUTROPHILS # (AUTO) 3.5 (2.1-6.9); PLATELET COUNT 226 x10e3/uL (140-360); RED BLOOD COUNT 4.85 x10e6/uL (4.3-5.7); RED CELL DISTRIBUTION WIDTH 12.3 % (11.7-14.4)
[2018-08-29 08:15] LABS: ALANINE AMINOTRANSFERASE 407 IU/L (0-55); ALBUMIN 2.7 g/dL (3.5-5.0); ALBUMIN/GLOBULIN RATIO 0.8 (0.8-2.0); ALKALINE PHOSPHATASE 44 IU/L (40-150); ANION GAP 11.6 mmol/L (8-16); BLOOD UREA NITROGEN 21 mg/dL (7-26); BUN/CREATININE RATIO 24 (6-25); CALCIUM 9.5 mg/dL (8.4-10.2); CARBON DIOXIDE 32 mmol/L (22-29); CHLORIDE 98 mmol/L (98-107); CREATININE, SERUM 0.88 mg/dL (0.72-1.25); EST GLOMERULAR FILTRATION RATE > 60 ML/MIN (60-); GLUCOSE 77 mg/dL (74-118); POTASSIUM 4.6 mmol/L (3.5-5.1); SODIUM 137 mmol/L (136-145)
[2018-08-29] MEDS: CYANOCOBALAMIN INJ 1,000 MCG/ML VIAL IM SCH (09:04)
[2018-08-29] MEDS: SENNA-S TABLET PO SCH ×2 (09:04→16:58)
--- NOTE | 2018-08-29 09:22 | Diagnostic Imaging Report ---
EXAMINATION: CT of the abdomen with and without contrast. TECHNIQUE: Helical CT images of the abdomen were performed from the lung bases to the iliac crests before and after the intravenous administration of 150 cc of Isovue 300 and the oral administration of none. Coronal and sagittal reformatted images were obtained. Liver protocol.Dose modulation, iterative reconstruction, and/or weight based adjustment of the mA/kV was utilized to reduce the radiation dose to as low as reasonably achievable. COMPARISON: None. CLINICAL HISTORY:Liver lesion on ultrasound DISCUSSION: LOWER THORAX:Unremarkable. HEPATOBILIARY: In the right hepatic lobe a 1.3 cm lesion which shows mild peripheral enhancement and with delayed fill in. SPLEEN: No splenomegaly. PANCREAS: No focal masses or ductal dilatation. ADRENALS: No adrenal nodules. KIDNEYS/URETERS: No hydronephrosis, stones, or solid mass lesions. PERITONEUM/RETROPERITONEUM: No free air or fluid. LYMPH NODES: No intra-abdominal, retroperitoneal, pelvic or inguinal lymphadenopathy. VESSELS: The celiac trunk,superior and inferior mesenteric and bilateral renal arteries are patent The portal, superior mesenteric and splenic veins are patent. GI TRACT: No distention or wall thickening. BONES AND SOFT TISSUE: No bony destructive lesions. No soft tissue abnormalities. IMPRESSION: Right hepatic lobe hemangioma Signed by: Dr. Jayden Calhoun M.D. on 08/29/2018 9:19 AM
--- NOTE | 2018-08-29 09:30 | NUR ---
P BACK IN ROOM ,DENIES PAIN,NO DISTRESS NTOED
[2018-08-29 09:41] LABS: CREATINE KINASE 116022 IU/L (30-200)
--- NOTE | 2018-08-29 17:23 | NUR ---
PT UP IN BED DENIES PAIN.
--- NOTE | 2018-08-29 19:20 | NUR ---
Completed nursing report with morning nurse. Pt alert to name. Pt right side lying in bed. Denies pain at this time. Call albert within reach. Will continue to monitor.
--- NOTE | 2018-08-29 22:50 | NUR ---
Removed 20g IV left FA due to increased pain and swelling at IV site. Pt tolerated well.
[2018-08-30] VITALS (8 sets, daily range): BP systolic 103–134; BP diastolic 55–83
--- NOTE | 2018-08-30 00:51 | NUR ---
ROUNDS WITH DR. LEDESMA EXPLAINED TO PT SPOT ON HIS LIVER WAS BENIGN. PT C/O HEMORRHOIDS. DR WILL ORDER HEMORRHOID MEDICATION.
--- NOTE | 2018-08-30 01:26 | NUR ---
NEW ORDER Anusol Hc Supp(HYDROCORTISONE ACETATE 25 MG/SUPP.RECT SUPP) 25 MG RC BID [facility].
[2018-08-30 06:07] LABS: BASOPHILS % 0.4 % (0.0-1.0); EOSINOPHILS # (AUTO) 0.1 (0.0-0.4); EOSINOPHILS % 1.9 % (0.0-6.0); LYMPHOCYTES # (AUTO) 1.2 (1.0-3.2); LYMPHOCYTES % 21.4 % (18.0-39.1); MEAN CORPUSCULAR HEMOGLOBIN 29.5 pg (28-32); MEAN CORPUSCULAR HGB CONC 33.3 g/dL (31-35); MEAN CORPUSCULAR VOLUME 88.4 fL (81-99); MONOCYTES # (AUTO) 0.8 (0.2-0.8); NEUTROPHILS # (AUTO) 3.5 (2.1-6.9); NEUTROPHILS % 61.1 % (38.7-80.0); PLATELET COUNT 209 x10e3/uL (140-360); RED BLOOD COUNT 4.41 x10e6/uL (4.3-5.7); RED CELL DISTRIBUTION WIDTH 12.3 % (11.7-14.4)
[2018-08-30 06:33] LABS: ALANINE AMINOTRANSFERASE 347 IU/L (0-55); ALBUMIN 2.5 g/dL (3.5-5.0); ALBUMIN/GLOBULIN RATIO 0.8 (0.8-2.0); ALKALINE PHOSPHATASE 39 IU/L (40-150); BLOOD UREA NITROGEN 19 mg/dL (7-26); BUN/CREATININE RATIO 22 (6-25); CALCIUM 8.9 mg/dL (8.4-10.2); CARBON DIOXIDE 36 mmol/L (22-29); CHLORIDE 99 mmol/L (98-107); CREATININE, SERUM 0.85 mg/dL (0.72-1.25); EST GLOMERULAR FILTRATION RATE > 60 ML/MIN (60-); GLUCOSE 89 mg/dL (74-118); SODIUM 141 mmol/L (136-145)
[2018-08-30 06:56] LABS: CREATINE KINASE 36711 IU/L (30-200)
[2018-08-30] MEDS: SENNA-S TABLET PO SCH ×2 (08:20→16:19)
[2018-08-30] MEDS: CYANOCOBALAMIN INJ 1,000 MCG/ML VIAL IM SCH (08:20)
[2018-08-30] MEDS: HYDROCORTISONE ACETATE 25 MG/SUPP.RECT SUPP RC SCH ×2 (08:20→16:19)
[2018-08-30] MEDS: SODIUM BICARBONATE 8.4% SYRING 150 ML in DEXTROSE 5% 1,000 ML IV SCH ×2 (08:57→17:38)
[2018-08-30] MEDS ORDERED: ASPIRIN 81 MG CHEW TAB PO ONE (13:45)
--- NOTE | 2018-08-30 14:28 | NUR ---
URINAL PROVIDED TO PATIENT AND PATIENT IS AWARE OF NEED FOR URINE SPECIMEN. PATIENT WILL CALL ONCE SAMPLE IS PROVIDED.
[2018-08-30] MEDS ORDERED: GUAIFENESIN 200 MG/10 ML UDC PO PRN (14:30)
--- NOTE | 2018-08-30 16:29 | Progress Note ---
DATE: Internal Medicine Progress Note SUBJECTIVE: The patient is doing well. No significant complaints. PHYSICAL EXAMINATION: VITAL SIGNS: Blood pressure 134/60, temperature 96.5, heart rate 91 per minute, respiratory rate is 20 per minute, oxygen saturation 98%. HEART: Showed regular rhythm. Normal S1, S2 sound. LUNGS: Clear bilaterally. ABDOMEN: Soft. EXTREMITIES: Show no evidence of cyanosis or hematoma. LABORATORY DATA: BMP; sodium 141, potassium 4.0, chloride 99, CO2 36, BUN 19, creatinine 0.85, glucose 89. CBC; white count 5.71, hemoglobin 13.0, hematocrit 39.0, platelet count 209,000. AST 489, ALT 347, total bilirubin 0.4, alkaline phosphatase 39. FINAL IMPRESSION: 1. Rhabdomyolysis. 2. Elevated liver function test. 3. Vitamin B12 deficiency. 4. Hemangioma of the liver. PLAN OF TREATMENT: We are going to continue with the IV fluids, which include sodium bicarbonate 150 mL an hour. Continue Tylenol 325 mg q.6 hours as needed for pain or fever, vitamin B12 1000 mcg IM daily because of the vitamin D B12 deficiency, Ambien 5 mg at night p.r.n. for insomnia, senna one tablet twice a day, hydrocortisone acetate suppository 25 mg twice a day for hemorrhoid. We are going to recheck the BUN, creatinine, electrolytes, and CPK tomorrow. I discussed the case with the patient and Dr. Pate also. The patient would stay at least a couple of more days. MD SAVI Melo/STEVE /[id number]
[2018-08-30 16:53] LABS: CLARITY,URINE SL CLOUDY (CLEAR); COLOR,URINE YELLOW (YELLOW)
[2018-08-30 16:54] LABS: BILIRUBIN,URINE NEGATIVE (NEGATIVE); KETONES,URINE NEGATIVE (NEGATIVE); LEUKOCYTE ESTERASE ,URINE NEGATIVE (NEGATIVE); NITRITE,URINE NEGATIVE (NEGATIVE); PROTEIN,URINE DIPSTICK 1+ (NEGATIVE); URINE UROBILINOGEN 0.2 mg/dL (0.2 - 1)
[2018-08-30 17:07] LABS: RBC,URINE 0-5 /HPF (0-5)
--- NOTE | 2018-08-30 19:29 | NUR ---
PATIENT IS IN STABLE CONDITION WITH NO S/S OF RESPIRATORY DISTRESS. NO PAIN VOICED. IV FLUIDS INFUSING. CALL LIGHT IS WITHIN REACH OF PATIENT, PATIENT INSTRUCTED TO CALL FOR ASSISTANCE NEEDED. BEDSIDE REPORT GIVEN TO ONCOMING NURSE.
--- NOTE | 2018-08-30 20:57 | NUR ---
RECEIVE DPT IN BED AOX3 .DENIES PAIN NO ACUTE DISTRESS NOTED .CALL LIGHT WITH IN REACH .CONTINUE TO MONITOR
[2018-08-31] VITALS (8 sets, daily range): BP systolic 92–141; BP diastolic 51–76
[2018-08-31] MEDS: SODIUM BICARBONATE 8.4% SYRING 150 ML in DEXTROSE 5% 1,000 ML IV SCH ×4 (03:07→23:00)
--- NOTE | 2018-08-31 06:09 | NUR ---
PT RESTING NO ACUTE DISTRESS NOTED .CALL LIGHT WITH IN REACH .CONTINUE TO MONITOR
--- NOTE | 2018-08-31 07:05 | NUR ---
PATIENT IS IN STABLE CONDITION WITH NO S/S OF RESPIRATORY DISTRESS- NO PAIN VOICED. IV FLUIDS INFUSING FOR THE PATIENT. CALL LIGHT IS WITHIN REACH OF PATIENT-- PATIENT INSTRUCTED TO CALL FOR ASSISTANCE NEEDED.
--- NOTE | 2018-08-31 07:13 | NUR ---
REPORT GIVEN TO THE ON COMING NURSE
[2018-08-31] MEDS: LORATADINE 10 MG TAB PO SCH (08:26)
[2018-08-31] MEDS: CYANOCOBALAMIN INJ 1,000 MCG/ML VIAL IM SCH (08:28)
[2018-08-31] MEDS: SENNA-S TABLET PO SCH ×2 (08:29→16:41)
[2018-08-31] MEDS: HYDROCORTISONE ACETATE 25 MG/SUPP.RECT SUPP RC SCH (08:29)
[2018-08-31 08:55] LABS: ALANINE AMINOTRANSFERASE 309 IU/L (0-55); ALBUMIN 2.6 g/dL (3.5-5.0); ALBUMIN/GLOBULIN RATIO 0.8 (0.8-2.0); ALKALINE PHOSPHATASE 39 IU/L (40-150); ANION GAP 8.8 mmol/L (8-16); BLOOD UREA NITROGEN 15 mg/dL (7-26); BUN/CREATININE RATIO 21 (6-25); CALCIUM 8.9 mg/dL (8.4-10.2); CARBON DIOXIDE 31 mmol/L (22-29); CHLORIDE 99 mmol/L (98-107); CREATININE, SERUM 0.73 mg/dL (0.72-1.25); EST GLOMERULAR FILTRATION RATE > 60 ML/MIN (60-); GLUCOSE 85 mg/dL (74-118); POTASSIUM 3.8 mmol/L (3.5-5.1); SODIUM 135 mmol/L (136-145)
[2018-08-31 09:13] LABS: CREATINE KINASE 16050 IU/L (30-200)
--- NOTE | 2018-08-31 12:02 | Progress Note ---
DATE: Internal Medicine Progress Note SUBJECTIVE: The patient is doing well. No significant complaint. OBJECTIVE: VITAL SIGNS: Blood pressure 105/56, temperature 36.7, heart rate 80 per minute, respiratory rate 17 per minute, and oxygen saturation 97%. HEART: Regular rhythm. No murmur or added sound. LUNGS: Clear bilaterally. ABDOMEN: Soft. LABORATORY DATA: BMP; sodium 141, potassium 4.0, chloride 99, CO2 36, BUN 19, creatinine 0.86, and glucose 89. CBC; white blood count 5.01, hemoglobin 13.0, hematocrit 39.0, and platelet count 209,000. AST 489, ALT 347, total bilirubin 0.4, alkaline phosphatase of 39. FINAL IMPRESSION: 1. Rhabdomyolysis. 2. Elevated liver function tests. 3. Liver mass, which is compatible with hemangioma. 4. Vitamin B12 deficiency. PLAN OF TREATMENT: Continue IV fluids with sodium bicarbonate 250 mL an hour, Ambien 5 mg at night p.r.n. for sleep, Tylenol 325 mg q.6 hours as needed for pain or fever, Claritin 10 mg daily. Because of allergic rhinitis, guaifenesin 200 mg q.4 hours as needed. Continue monitoring the total CPK. Tentative discharge tomorrow. MD SAVI Melo/STEVE /[id number]
--- NOTE | 2018-08-31 19:19 | NUR ---
PATIENT IS ALERT AND IN STABLE CONDITION WITH NO S/S OF RESPIRATORY DISTRESS. NO PAIN VOICED. IV FLUIDS INFUSING AT THIS TIME. CALL LIGHT IS WITHIN REACH OF PATIENT. PATIENT INSTRUCTED TO CALL FOR ASSISTANCE NEEDED. BEDSIDE REPORT GIVEN TO ONCOMING NIGHT NURSE.
--- NOTE | 2018-08-31 19:42 | NUR ---
RECEIVED PT IN BED AOX3 .DENIES PAIN .NO ACUTE DISTRESS NOTED .CALL LIGHT WITH IN REACH .CONTINUE TO MONITOR
[2018-09-01] VITALS: BP 115/56
[2018-09-01 04:44] VITALS: BP 109/56
--- NOTE | 2018-09-01 06:16 | NUR ---
NO C/O PAIN .PT RESTING .DR LEDESMA SEEN THE PT .CONTINUE TO MONITOR
[2018-09-01] MEDS: SODIUM BICARBONATE 8.4% SYRING 150 ML in DEXTROSE 5% 1,000 ML IV SCH (06:40)
[2018-09-01 06:42] LABS: ANION GAP 9.1 mmol/L (8-16); BLOOD UREA NITROGEN 16 mg/dL (7-26); BUN/CREATININE RATIO 20 (6-25); CALCIUM 8.8 mg/dL (8.4-10.2); CARBON DIOXIDE 32 mmol/L (22-29); CHLORIDE 102 mmol/L (98-107); CREATININE, SERUM 0.79 mg/dL (0.72-1.25); EST GLOMERULAR FILTRATION RATE > 60 ML/MIN (60-); GLUCOSE 83 mg/dL (74-118); POTASSIUM 4.1 mmol/L (3.5-5.1); SODIUM 139 mmol/L (136-145)
--- NOTE | 2018-09-01 07:13 | NUR ---
REPORT GIVEN ON COMING NURSE
[2018-09-01 08:00] VITALS: BP 111/55
[2018-09-01] MEDS: SENNA-S TABLET PO SCH (09:00)
[2018-09-01] MEDS: CYANOCOBALAMIN INJ 1,000 MCG/ML VIAL IM SCH (09:54)
[2018-09-01] MEDS: LORATADINE 10 MG TAB PO SCH (09:54)
[2018-09-01 12:00] VITALS: BP 134/78
--- NOTE | 2018-09-02 05:48 | Discharge Summary ---
HOSPITAL COURSE: The patient was admitted with rhabdomyolysis, elevated LFTs. He was started on IV fluids, sodium bicarbonate. He was also found to have low vitamin B12, started on vitamin B12 injections. The total CPK finally started coming down along with the liver enzymes also. The patient was seen by Dr. Pate for Nephrology and also Dr. Christiano Zamarripa for Gastroenterology. CT of the abdomen showed hemangioma. All the blood work for elevated LFTs has been unremarkable. We did a hepatitis profile, which came back negative. Antinuclear antibody negative. Antimitochondrial antibody is 20. HIV 1 and 2 and HIV p24 antigen completely normal. completely normal. The CK originally when the patient came to the hospital was 262,400, right now the last one is 9369. The patient is feeling better. He was started on B12 injections 1000 mcg once a day for a week, once a week for a month, and once a month for lifetime, already I told the patient about that. The patient wants to be discharged on coenzyme Q also. PHYSICAL EXAMINATION: HEART: Showed regular rhythm. No murmurs. No added sounds. LUNGS: Clear bilaterally. ABDOMEN: Soft. FINAL IMPRESSION: 1. Rhabdomyolysis. 2. Vitamin B12 deficiency. 3. Elevated LFTs. PLAN OF TREATMENT: The patient going to continue vitamin B12 of 1000 mcg IM daily for 5 days and then 1000 mcg IM once a week for 3 weeks, and once a month for lifetime. The patient is going to continue coenzyme Q one tablet daily prescribed by Dr. Pate. The patient going to be discharged today if it is okay with Dr. Pate. Followup is going to be with Dr. Christiano Zamarripa for Gastroenterology and Dr. Pate for Nephrology. The patient is told not to drink alcohol, to stay away from strenuous exercise. All instructions have been given to the patient. MD SAVI Melo/STEVE /[id number]
== END 2018-09-01 16:07 | disposition home or self-care (01) | DRG 558 ==
LOC: MED/SURG3 21:40
PROVIDERS: ADMIT Internal Medicine; ATTEND Internal Medicine
DX: M62.82 Rhabdomyolysis (principal); E86.0 Dehydration; E53.8 Deficiency of other specified B group vitamins; R79.89 Other specified abnormal findings of blood chemistry; D18.03 Hemangioma of intra-abdominal structures
CPT/HCPCS: 36415; 74170; 76700; 80048; 80053; 80307; 81001; 82085; 82105; 82390; 82550; 82553; 82607; 82746; 83516; 83540; 84100; 84443; 84466; 84484; 84550; 84560; 85025; 85045; 86039; 86255; 86803; 87390; 93005; G0433; G0435; J3420; J7030; J7042; J7070; Q9967

== ENCOUNTER → 2018-09-20 | Day surgery (SDC) | payer BC ==
[~2018-09-20] MED LIST: FENTANYL CITRATE/PF 100MCG/2 ML INJ ONE; LIDOCAINE HCL 2% LOCAL INJ 5 ML SDV VIAL INJ ONE; MIDAZOLAM HCL 2 MG/2 ML VIAL ONE; PROPOFOL IV EMULSION 10 MG/ML 50 ML VIAL ONE; VITAMIN B-1250 MCG INJ
--- OUTSIDE RECORDS SUMMARY | 2018-09-20 12:28 | XMS REPORT | Clinical Summary ---
Author [facility] Address Unknown Phone Unavailable Care Team Providers Care Safety And Health Manager Name Role Phone PCP Unavailable Allergies Comments [...] as needed for up to 360 days. 08/26/2019 Active senna (SENOKOT) 8.6 mg Take 1 tablet 30 tablet 0 tablet (8.6 mg 9 total) by mouth every night as needed for Constipation. 09/25/2018 Active temazepam (RESTORIL) 7.5 Take 1 30 capsule 0 MG capsule capsule (7.5 9 mg total) by mouth every night as needed for up to 30 days. Max Daily Amount: 7.5 mg 09/02/2018 ondansetron (ZOFRAN-ODT) Take 1 tablet 20 tablet 0 4 MG disintegrating (4 mg total) 9 tablet by mouth every 8 (eight) hours as needed for up to 7 days. 09/05/2018 bisacodyl (DULCOLAX) 10 Place 1 12 0 mg suppository suppository suppository 9 (10 mg total) rectally daily as needed for up to 10 days. 09/05/2018 docusate sodium (COLACE) Take 1 10 capsule 0 100 MG capsule capsule (100 9 mg total) by mouth 2 (two) times daily for 10 days. 08/29/2018 polyethylene glycol Take 17 g by 14 each 0 (GLYCOLAX) 17 gram packet mouth daily 9 as needed (Constipation ) for up to 3 days. 09/05/2018 aluminum & magnesium Take 30 mLs 355 [...] Only General Internal Medicine 08/23/2018 Travel after 09/19/2017 Social History Date Tobacco Use Types Packs/Day [...] Comments Procedure Name Priority Date/Time Associated Diagnosis REPORT OF PROCEDURE - 08/30/2018 ENDOSCOPY SCAN 3:35 PM CDT CREATINE KINASE (CK) Routine 08/26/2018 11:56 AM [...] ms QTC Calculatio n(Bazett) 399 ms P Silver 63 degrees R Silver 23 degrees T Silver 26 degrees Sinus rhythm with sinus arrhythmia with occasional Premature ventricula r complexes Otherwise normal ECG When compared with ECG of 3 14:16, Premature ventricula r complexes are now Present T wave amplitude has decreased in Anterior leads ECG 12-LEAD STAT 08/23/2018 3:31 PM CDT after 09/19/2017 Results * EKG-SCANNED (08/30/2018 3:35 PM CDT) Narrative Performed At * Creatine Kinase (CK) (08/26/2018 11:56 AM CDT) Only the most recent of 5 results within the time period is included. Total CK >36224 (H) 29 - 200 U/L [facility] Specimen Blood Performing Organization Address City/State/Zipcode Phone Number [facility] [address] [place] [address] [phone] * CBC with platelet count + automated diff (08/26/2018 5:18 AM CDT) Only the most recent of 4 results within the time period is included. WBC 7.3 3.5 - 10.5 K/L [facility] RBC 5.32 4.63 - 6.08 M/L [facility] Hemoglobin 15.7 13.7 - 17.5 GM/DL [facility] Hematocrit 46.5 40.1 - 51.0 % [facility] MCV 87.4 79.0 - 92.2 fL [facility] MCH 29.5 25.7 - 32.2 pg [facility] MCHC 33.8 32.3 - 36.5 GM/DL [facility] RDW 12.6 11.6 - 14.4 % [facility] Platelets 228 150 - 450 K/CU MM [facility] MPV 10.6 9.4 - 12.4 fL [facility] nRBC 0 0 - 0 /100 WBC [facility] % Neutros 68 % [facility] % Lymphs 19 % [facility] % Monos 11 % [facility] % Eos 1 % [facility] % Baso 0 % [facility] # Neutros 4.96 1.78 - 5.38 K/L [facility] # Lymphs 1.39 1.32 - 3.57 K/L [facility] # Monos 0.76 0.30 - 0.82 K/L [facility] # Eos 0.09 0.04 - 0.54 K/L [facility] # Baso 0.02 0.01 - 0.08 K/L [facility] Immature 1 0 - 1 % [facility] Granulocytes-Relative [facility] Specimen Blood Performing Organization Address City/State/Zipcode Phone Number [facility] [address] [place], [place] [phone] [facility] * Basic metabolic panel (08/26/2018 5:18 AM CDT) Only the most recent of 4 results within the time period is included. Sodium 136 136 - 145 meq/L [facility] Potassium 5.4 (H) 3.5 - 5.1 meq/L [facility] Chloride 103 98 - 107 meq/L [facility] CO2 27 22 - 29 meq/L [facility] BUN 13 7 - 21 mg/dL [facility] Creatinine 0.84 0.57 - 1.25 mg/dL [facility] Glucose 80 70 - 105 mg/dL [facility] Calcium 9.4 8.4 - 10.2 mg/dL [facility] EGFR 128Comment: ESTIMATED GFR IS mL/min/1.73 sq m [facility] NOT ACCURATE CREATININE [facility] CLEARANCE IN PREDICTING GLOMERULAR FILTRATION RATE. ESTIMATED GFR IS NOT APPLICABLE FOR DIALYSIS PATIENTS. Specimen Blood Performing Organization Address City/[facility]/Zipcode Phone Number [facility] [address] [place], [place] [phone] [facility] * XR chest 1 view portable / bedside (08/23/2018 5:00 PM CDT) Specimen Narrative Performed At FINAL REPORT [facility] Chest, AP view. History: Hematuria. Comparison: 08/20/2012. Discussion:The cardiomediastinal silhouette and pulmonary vasculature are within normal limits. The lungs are clear without evidence of consolidation or effusion.There are no acute osseous abnormalities. The soft tissues are unremarkable. IMPRESSION: No acute cardiopulmonary abnormality. Signed: Andrew Kline MD Report Verified Date/Time:08/23/2018 17:08:57 Reading Location: [facility] Mammo Reading Room Procedure Note Interface, External Ris [...] Report Verified Date/Time: 08/23/2018 17:08:57 Reading Location: [facility] Mammo Reading Room Performing Organization Address City/State/Zipcode Phone Number [facility] * Urinalysis w/Microscopic + Reflex to Culture (08/23/2018 3:43 PM CDT) Color, UA Yellow [facility] Clarity, UA Clear [facility] Specific [place], UA 1.003 1.001 - 1.035 [facility] pH, UA 6.5 5.0 - 8.0 [facility] Protein, UA 70 mg/dL (A) Negative [facility] Glucose, UA Negative Negative [facility] Ketones, UA Negative Negative [facility] Bilirubin, UA Negative Negative [facility] Blood, UA Large (A) Negative [facility] Nitrite, UA Negative Negative [facility] Leukocytes, UA Negative Negative [facility] Urobilinogen, UA 0.2 0.2 - 1.0 mg/dL [facility] RBC, UA 0 /HPF [facility] WBC, UA 1 /HPF [facility] Specimen Source [facility] Specimen Urine Performing Organization Address City/State/Zipcode Phone Number [facility] [address] [place] [address] [facility] * ECG 12 lead (08/23/2018 3:31 PM CDT) Specimen Narrative Performed At Ventricular Rate 79 BPM [facility] Atrial Rate 79 BPM P-R Interval 156 ms QRS Duration 88 ms Q-T Interval 348 ms QTC Calculation(Bazett) 399 ms P Silver 63 degrees R Silver 23 degrees T Silver 26 degrees Sinus rhythm with sinus arrhythmia with occasional Premature ventricular complexes Otherwise normal ECG When compared with ECG of 17-AUG-2012 14:16, Premature ventricular complexes are now Present ST elevation no longer seen T wave amplitude has decreased in Anterior leads Confirmed by MD MELL, HUGO ([id number]) on 08/24/2018 8:05:56 AM Procedure Note Interface, External Ris In - 08/24/2018 8:06 AM CDT Ventricular Rate 79 BPM Atrial Rate 79 BPM P-R Interval 156 ms QRS Duration 88 ms Q-T Interval 348 ms QTC Calculation(Bazett) 399 ms P Silver 63 degrees R Silver 23 degrees T Silver 26 degrees Sinus rhythm with sinus arrhythmia with occasional Premature ventricular complexes Otherwise normal ECG When compared with ECG of 17-AUG-2012 14:16, Premature ventricular complexes are now Present ST elevation no longer seen T wave amplitude has decreased in Anterior leads Confirmed by MD MONTE YOCHAI ([id number]) on 08/24/2018 8:05:56 AM Performing Organization Address City/State/Zipcode Phone Number [facility] after 09/19/2017 Insurance Payer Benefit Subscriber ID Type Phone Address Plan / Group BLUE [employer]OSS/[employer] BCBS PPO xxxxxxxxxxxx PPO [phone] [address] [place] [address] CHOICE Advance Directives For more information, please contact: [facility] [address] [place] [address] Date Inactivated Comments Code Status Date Activated 08/26/2018 10:33 PM Full Code 08/23/2018 6:47 PM This code status was determined by: Patient
--- NOTE | 2018-09-20 17:26 | Operative Report ---
DATE OF PROCEDURE: SURGEON: Christiano Zamarripa MD PROCEDURE: Esophagogastroduodenoscopy with biopsies. INDICATION FOR PROCEDURE: Vitamin B12 deficiency, rule out atrophic gastritis. MEDICATIONS: The patient was done under MAC, please see anesthesiologist's note. PROCEDURE IN DETAIL: With the patient in left lateral decubitus position a flexible fiberoptic Olympus gastroscope was introduced into the esophagus under direct visualization without any difficulty. There was some patchy erythema noted in distal esophagus. The scope was then advanced with ease into the stomach traversing a small hiatal hernia. Mucosa overlying the antrum and the body revealed some patchy erythema and low-grade to moderate edema. Biopsies were obtained and sent to stain for H pylori. Pylorus was of normal contour and shape, it was intubated with ease and the scope was advanced all the way to the second portion of the duodenum. Biopsies were obtained from the proximal second portion and duodenal bulb. The scope was then withdrawn back into the stomach and retroflexed and mucosa overlying the fundus and cardia appeared to be within normal limits. The scope was then straightened out, it was subsequently withdrawn. The patient tolerated the procedure well. IMPRESSION: 1. Mild distal esophagitis. 2. Small hiatal hernia. 3. Gastritis, biopsied. Biopsies sent to stain for Helicobacter pylori. 4. Rule out sprue. PLAN: Follow up histology. Initiate Protonix 40 mg one p.o. q.a.m. a.c. If biopsies from the body of the stomach turner in to be within normal limits then additional workup is needed to delineate the cause of the patient's B12 deficiency. Christiano Zamarripa MD [facility] /[id number] cc: Allyssa Austin
[2018-09-20 17:30] VITALS: BP 106/62
== END | disposition home or self-care (01) ==
LOC: OR 12:15
PROVIDERS: ATTEND Internal Medicine Gastroenterology
DX: D51.9 Vitamin B12 deficiency anemia, unspecified (principal); K29.50 Unspecified chronic gastritis without bleeding; K20.9 Esophagitis, unspecified; K44.9 Diaphragmatic hernia without obstruction or gangrene; Z88.6 Allergy status to analgesic agent
CPT/HCPCS: 43239; J2001; J2250; J2704